=== PATIENT | male | born 1945 | race Caucasian/White ===

== ENCOUNTER 2017-06-30 14:14 | Emergency (ER) | payer MEDICARE ==
[~2017-06-30] VITALS: Ht 170.2 cm; Wt 86.2 kg
[2017-06-30 14:36] VITALS: BP 142/84
--- NOTE | 2017-06-30 15:06 | RAD ---
EXAM: Right lower extremity Doppler sonogram. HISTORY: Pain. TECHNIQUE: Grayscale and color Doppler sonographic imaging of the lower extremity veins with spectral waveform analysis was performed. COMPARISON: None. FINDINGS: There is normal color flow, normal compressibility and there are normal spectral waveforms within the lower extremity veins. IMPRESSION: No Doppler evidence of lower extremity venous thrombosis.
[2017-06-30] MEDS ORDERED: PRED20TA PO (15:27)
[2017-06-30] MEDS ORDERED: IBUP-1027 PO (15:27)
--- NOTE | 2017-06-30 15:27 | PHYS DOC ---
Past Medical History Past Medical History: High Cholesterol Past Surgical History: Cholecystectomy Alcohol Use: None Drug Use: None Adult General Chief Complaint Chief Complaint: LOWER EXT PAIN HPI HPI 72-year-old male presenting to the emergency department today with pain for the past 2 days. He describes it as a sharp shooting pain that is worse with walking and without alleviating factors. He denies a history of trauma. He denies fevers or chills at home. He reports a family history of gout. He denies personal history of gout. The pain is sharp shooting nonradiating moderate pain which is improved with rest. Review of systems is negative for fevers chills chest pain shortness of breath hip. She denies numbness weakness or tingling. all other ROS is negative unless otherwise noted in history of present illness. ED course: 72-year-old male presenting with atraumatic right articular arthritis. On examination the patient's right knee it is mildly warm to touch without any erythema or associated cellulitis. Neurovascularly intact distally with a palpable pulse and 2 second cap refill. Patient is afebrile here in the emergency department with a normal heart rate. Patient has mild pain on passive range of motion of the patient's right knee. She describes the pain more posterior to the knee. There are no fluctuant masses behind the knee. No erythema of the skin. An ultrasound had been ordered prior to my seeing the patient which was negative for acute DVT. Consider septic arthritis however feels this is significantly less likely. I ordered the pt ibuprofen and oral steroids to follow up with his doctor next few days. Review of Systems Review of Systems SEE ABOVE. Allergies Allergies Allergies Coded Allergies Type Severity Reaction Last Updated Verified No Known Drug Allergies 09/29/14 No Physical Exam Physical Exam SEE ABOVE Constitutional: Well developed, well nourished, no acute distress, non-toxic appearance. [] HENT: Normocephalic, atraumatic, bilateral external ears normal, oropharynx moist, no oral exudates, nose normal. [] Eyes: PERRLA, EOMI, conjunctiva normal, no discharge. [] Neck: Normal range of motion, no tenderness, supple, no stridor. [] Cardiovascular:Heart rate regular rhythm, no murmur [] Lungs & Thorax: Bilateral breath sounds clear to auscultation [] Abdomen: Bowel sounds normal, soft, no tenderness, no masses, no pulsatile masses. [] Skin: Warm, dry, no erythema, no rash. [] Back: No tenderness, no CVA tenderness. [] Extremities: No tenderness, no cyanosis, no clubbing, ROM intact, no edema. [] Neurologic: Alert and oriented X 3, normal motor function, normal sensory function, no focal deficits noted. [] Psychologic: Affect normal, judgement normal, mood normal. [] Current Patient Data Vital Signs Vital Signs Date Time Temp Pulse Resp B/P (MAP) Pulse Ox O2 Delivery O2 Flow Rate FiO2 06/30/17 14:36 97.8 87 22 98 Room Air 97.8 EKG EKG [] Radiology/Procedures Radiology/Procedures [] Course & Med Decision Making Course & Med Decision Making Pertinent Labs and Imaging studies reviewed. (See chart for details) [] Dragon Disclaimer Dragon Disclaimer This electronic medical record was generated, in whole or in part, using a voice recognition dictation system. Departure Departure Impression: Primary Impression: Knee pain, right Disposition: HOME, SELF-CARE Condition: STABLE Referrals: NO PCP (PCP) Patient Instructions: Gout, [id number] Additional Instructions: Thank you for allowing us to participate in your care today. Followup with your primary care physician in 3 days if your symptoms do not improve. Call your Primary Doctor tomorrow and inform them of your visit today. If you do not have a primary care provider you can ask for a list of our primary care providers. Return to the emergency department you have any new or concerning findings. This should be evaluated by the primary care physician and any necessary consulting services for continued management within a few days after discharge. Return to emergency room if you have any new or concerning symptoms including but not limited to fever, chills, nausea, vomiting, intractable pain, any new rashes, chest pain, shortness of air, uncontrolled bleeding, difficulty breathing, and/or vision loss. You may have been prescribed medication that can change in your level of thinking and ability to operate machinery. These medications include hydrocodone and Ativan. Also, Benadryl has been known to do this as well. Be sure to check with your pharmacist and ask if the medications you've prescribed can affect your level of consciousness. I recommend not operating heavy machinery or driving while on medication such as these. Scripts Hydrocodone Bit/Acetaminophen (HYDROCODONE-APAP 5-325 ) 1 Each Tablet 1 TAB PO PRN Q8HRS Y for SEVERE PAIN, #8 TAB 0 Refills Prov: PHYLLIS MORROW MD 06/30/17 Prednisone (PREDNISONE) 20 Mg Tablet 2 TAB PO DAILY, #10 TAB Prov: PHYLLIS MORROW MD 06/30/17 Ibuprofen (IBUPROFEN) 400 Mg Tablet 400 MG PO PRN Q8HRS Y for PAIN, #10 TAB 0 Refills Prov: PHYLLIS MORROW MD 06/30/17 PHYLLIS MORROW MD Jun 30, 2017 15:27
[2017-06-30] MEDS ORDERED: HYDR-2758 PO (15:29)
== END 2017-06-30 15:47 | disposition home or self-care (01) ==
LOC: ER 14:14
DX: M25.561 Pain in right knee (principal); E78.00 Pure hypercholesterolemia, unspecified; Z90.49 Acquired absence of other specified parts of digestive tract
CPT/HCPCS: 93971; 99284-25

== ENCOUNTER 2017-12-12 16:27 | Emergency (ER) | payer MEDICARE | END 2017-12-12 17:12 | disposition home or self-care (01) | LOC: ER 16:27 | DX: K02.9 Dental caries, unspecified (principal); R59.9 Enlarged lymph nodes, unspecified; E78.00 Pure hypercholesterolemia, unspecified | CPT/HCPCS: 99283 ==

== ENCOUNTER → 2020-11-24 | Outpatient (CLI) | payer MEDICARE ==
[2019-12-14 14:37] VITALS: BP 125/61
[~2020-11-24] MED LIST: ACET325T9 PO; ASPI325T11 PO; ATOR40TA59 PO; CLIN300C9 PO; CLOP75TA PO; DOCU-153 PO; HYDR-2761 PO; IBUP-1027 PO; LOSA-73 PO; METO25TA4 PO; NITR0.4T24 SL; PANT40TA77 PO; PERFLUTREN PROTEIN-A MICROSPHR 0.22 MG/ML 3 ML VIAL. IV ONE; PRED20TA PO
--- NOTE | 2020-11-24 17:01 | RAD ---
Clinical Indications: Carotid bruit. Exam : Carotid Duplex with Grayscale Ultrasound and Spectral and Color Doppler Analysis: PQRS Compliance Statement - Stenosis calculations for CT, MR and conventional angiography are based u heather measurement of the distal ICA diameter in accordance with the NASCET methodology. Stenosis calcu lations for carotid ultrasound studies are derived from validated velocity criteria which are known t o correlate with the NASCET methodology. Comparison study: None available. Findings: The common, internal and external carotid arteries were examined by grayscale, color and s pectral Doppler ultrasound. Mild atherosclerotic calcifications identified in the carotid bulbs and proximal internal carotid arteries. Flow in both vertebral arteries was antegrade and normal. The f ollowing are the velocities and ratios in the carotid arteries on both sides: RIGHT ICA PV: 63cm/sec RIGHT CCA PV: 142cm/sec RIGHT ICA ED: 16cm/sec RIGHT IC/CCPV: 0.44 RIGHT VERTEBRAL: antegrade flow RIGHT % STENOSIS: Less than 50 percent LEFT ICA PV: 71cm/sec LEFT CCA PV: 105cm/sec LEFT ICA ED: 16cm/sec LEFT IC/CCPV: 0.7 LEFT VERTEBRAL: antegrade flow LEFT % STENOSIS: Less than 50 percent <50% ICA Stenosis: PSV < 125cm/s (EDV < 40cm/s; SVR < 2.0) 50-69% ICA Stenosis: PSV < 125-229cm/s (EDV 40-99cm/s; SVR 2.0-3.9) >70% ICA Stenosis: PSV > 230cm/s (EDV >100cm/s; SVR >4.0) Impression: No evidence of hemodynamically significant stenosis. Electronically signed by: Jey Moznon MD (11/24/2020 4:58 PM) [id number]
--- NOTE | 2020-11-24 17:15 | CARD ---
MR#: [id number] Date of Study: 11/24/2020 Ordering Physician: PRESTON SON, Referring Physician: PRESTON SON, Tech: Whitney Last RDCS APPROVED REPORT EXAM: Two-dimensional and M-mode echocardiogram with Doppler and color Doppler. Other Information Quality : Good INDICATION Cardiac Disease: CAD 2D DIMENSIONS RVDd3.1 (2.9-3.5cm)Left Atrium(2D)3.3 (1.6-4.0cm) IVSd1.0 (0.7-1.1cm)Aortic Root(2D)2.9 (2.0-3.7cm) LVDd3.7 (3.9-5.9cm)LVOT Diameter2.1 (1.8-2.4cm) PWd1.0 (0.7-1.1cm)LVDs2.1 (2.5-4.0cm) FS (%) 30.0 %SV43.0 ml LVEF(%)60.0 (>50%) M-Mode DIMENSIONS Aortic Cusp Exc1.36 (1.5-2.0cm) Aortic Valve AoV Peak John Paul.155.2cm/sAoV VTI36.4cm AO Peak GR.9.6mmHgLVOT Peak John Paul.129.3cm/s LVOT VTI 31.43cmAO Mean GR.5mmHg TRANG (VMAX)2.62jr3OIO (VTI)2.93cm2 Mitral Valve MV E Blwpecov95.9cm/sMV DECEL EOOP390cr MV A Uiojhaka26.3cm/sMV JVB26si E/A Ratio1.2MVA (PHT)3.61cm2 TDI E/Lateral E'11.9E/Medial E'17.2 Tricuspid Valve TR P. Bdgvzfbq893lr/sRAP XCFDSKNY1ipCe TR Peak Gr.19nlEaHTWP54jzZs Pulmonary Vein S1 Ijtijcsp90.5cm/sD2 Htcisuzx33.9cm/s LEFT VENTRICLE The left ventricle cavity is mildly decreased. There is mild concentric left ventricular hypertrophy. The left ventricular systolic function is normal and the ejection fraction is within normal range. T he Ejection Fraction is 55-60%. There is normal LV segmental wall motion. Transmitral Doppler flow pa ttern is Grade II-pseudonormal filling dynamics. RIGHT VENTRICLE The right ventricle is normal size. The right ventricular systolic function is normal. ATRIA The left atrium size is normal. The right atrium size is normal. The interatrial septum is intact wit h no evidence for an atrial septal defect or patent foramen ovale as noted on 2-D or Doppler imaging. AORTIC VALVE The aortic valve is mildly thickened but opens well. Doppler and Color Flow revealed no significant a ortic regurgitation. There is no significant aortic valvular stenosis. MITRAL VALVE The mitral valve is calcified but opens well. There is no evidence of mitral valve prolapse. There is no mitral valve stenosis. Doppler and Color-flow revealed trace mitral regurgitation. TRICUSPID VALVE The tricuspid valve is normal in structure and function. Doppler and Color Flow revealed mild tricusp id regurgitation. The PA pressure was estimated at 41 mmHg. There is no tricuspid valve stenosis. PULMONIC VALVE The pulmonic valve is not well visualized. Doppler and Color Flow revealed no pulmonic valvular regur gitation. There is no pulmonic valvular stenosis. GREAT VESSELS The aortic root is normal in size. The ascending aorta is normal in size. The IVC was not visualized. PERICARDIAL EFFUSION There is no evidence of significant pericardial effusion. Critical Notification Critical Value: No <Conclusion> The left ventricle cavity is mildly decreased. The left ventricular systolic function is normal and the ejection fraction is within normal range. The Ejection Fraction is 55-60%. There is mild concentric left ventricular hypertrophy. Doppler and Color Flow revealed no significant aortic regurgitation. There is no significant aortic valvular stenosis. Doppler and Color-flow revealed trace mitral regurgitation. Doppler and Color Flow revealed mild tricuspid regurgitation. The PA pressure was estimated at 41 mmHg. Signed by : Clark Ochoa MD Electronically Approved : 11/24/2020 17:15:38
== END ==
LOC: ECHO 08:46
PROVIDERS: ATTEND Internal Medicine Cardiovascular Disease
DX: I08.1 Rheumatic disorders of both mitral and tricuspid valves (principal); I25.10 Atherosclerotic heart disease of native coronary artery without angina pectoris; R42 Dizziness and giddiness; R09.89 Other specified symptoms and signs involving the circulatory and respiratory systems
CPT/HCPCS: 93880; C8929; Q9956